=== PATIENT | male | born 1990 | race Caucasian/White ===

== ENCOUNTER 2016-12-22 20:11 | Emergency (ER) | payer SELFPAY ==
[~2016-12-22] VITALS: Ht 188 cm; Wt 108.9 kg
[~2016-12-22 20:11] MED LIST: AMOXIL500 MG PO; BACTRIM DS 8001 TAB PO; BENADRYL 50MG C50 MG PO; HYDROCODONE-APA1 TA1 PO; NOMEDS *; NOMEDS XX; PHENERGAN VC +120 ML PO; TAMIFLU75 MG PO; ZITHROMAX Z PA250 MG PO; ZOFRAN ODT4 MG PO
--- NOTE | 2016-12-22 20:54 | Urgent Treatment Center Report ---
History of Present Issue Date/Time Seen by Provider 12/22/162048 Visit Reason Pt arrived:Walked Presenting Problem:Fell 6 feet off of a deck- left eye is black, several small abraisons to forehead noted. left ankle swelling and pain Location if Accident: Onset of symptoms date/time:/ or onset unknown for:MEDICAL HX UNKNOWN Have you (or family members/close friends) recently traveled outside the [place]? N If Yes, where/when: Have you had exposure to infectious disease within the past month? TB? Other? Specify: Patient advised that he was outside his house leaning on a deck rail when it broke and he fell off the deck and landed on his left foot which had previous surgery too and now has pain and swelling in ankle area, small abrasions on forehead and contusion under left eye and left thigh Source patient Exam Limitations no limitations ALLERGIES Coded Allergies: cefaclor (From CECLOR) (Mild, 12/22/16) Home Medications Reported Medications No Home Medications (NO HOME MEDICATIONS) 1 EACH XX ONCE History Medical History General CAD? No Angina: No MA: No Hypertension? No Hyperlipidemia? No CHF? No COPD? No Asthma? No Anemia? No Hernia? No Thyroid Problems? No Hypothyroidism? No CVA? No Seizures? No Diabetes? No UTI? No Stones? No GB Disease: No Nephritic Syndrome? No Asplenia? No Hepatitis? No Sickle Cell Disease? No Arthritis? No Cataracts? No Glaucoma? No MRSA? No TB? No Cancer? No Immunization HX DT/Tetanus 07/29/2014 Surgical Hx Previous Surgery?Y LEFT ANKLE SURGERY Social History Smoking Hx Smoker: Current Every Day Smoker Tobacco: Yes Type Cigarettes Packs/day < 1 Pack Alcohol Alcohol: No Review of Systems All Other Systems Reviewed and Negative Physical Exam Vital Signs Vital Signs Date Time Temp Pulse Resp B/P Pulse O2 O2 Flow FiO2 Ox Delivery Rate 12/22 2033 99.1 121 20 135/99 96 12/22 2015 99.1 121 20 135/99 96 General Appearance normal appearance Respiratory Status Yes: trachea midline, chest symmetrical, non tender chest. No: respiratory distress. Cardiovascular normal exam, no peripheral edema, no gallop, no JVD Extremities pain and swelling left ankle area, contusion on left thigh area Neurologic alert Skin abrasions, bruising Medical Decision Making LABS/Meds/Orders Pt receiving controlled substance in ED? No Results/Orders Orders Procedure Date/time Status ANKLE-LT-3 VIEWS 12/22 2017 Active XRAY/CT/US XRAY/CT/US XRAY ankle Xray Results no fracture seen Departure Departure Time of Disposition 2113 Disposition DC Home or Self Care(routine) Clinical Impression Primary Impression: Ankle sprain Qualifiers: Encounter type: initial encounter Involved ligament of ankle: unspecified ligament Laterality: left Qualified Code: S93.402A - Sprain of unspecified ligament of left ankle, initial encounter Condition STABLE Referrals NO REFERRAL (Family) Patient Instructions How To Perform RICE (Rest, Ice, Compress, Elevate), How to Use Crutches Additional Instructions Follow up family doctor RICE Crutches/goldy wrap no weight bearing 2-3 days or until cleared by family doctor Return if needed Over the counter Tylenol or Motrin for pain if needed Discharge Counseling Counseled pt/family regarding diagnosis, test results, medications/RX, home care, follow up needs at 2115
[2016-12-22 21:20] VITALS: BP 135/99
--- NOTE | 2016-12-23 06:12 | RADIOLOGY REPORT PS360 ---
ANKLE-LT-3 VIEWS HISTORY: Pain following injury FALL ORDERING PHYSICIAN: James Brooks MD PATIENT AGE: 26 years COMPARISON: None FINDINGS: There is a bone plate along the distal fibula. No acute fracture or dislocation is evident. There is mild soft tissue swelling laterally. IMPRESSION: 1. Prior ORIF distal fibula with no acute fracture. 2. Soft tissues lying laterally
[2017-02-25] MEDS ORDERED: MEDROL 4MG. DOSE4 MG PO (12:19)
== END 2016-12-22 21:21 | disposition home or self-care (01) ==
LOC: UTC 20:11 → ER 20:11 → UTC 20:34
DX: S93.402A Sprain of unspecified ligament of left ankle, initial encounter (principal); Z72.0 Tobacco use; W17.89XA Other fall from one level to another, initial encounter; Y92.019 Unspecified place in single-family (private) house as the place of occurrence of the external cause

== ENCOUNTER 2017-08-29 14:19 | Emergency (ER) | payer MEDICAID ==
[~2017-08-29] VITALS: Ht 188 cm; Wt 99.8 kg
[~2017-08-29 14:19] MED LIST changes: +MEDROL 4MG. DOSE4 MG PO
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
--- OUTSIDE RECORDS SUMMARY | 2017-08-29 14:24 | External Medical Summary Rpt ---
Author Author MARIANA Cruz, MARIANA Production Organization MARIANA [employer] Address Unknown Phone Unavailable
--- OUTSIDE RECORDS SUMMARY | 2017-08-29 14:24 | External Medical Summary Rpt | CCD ---
Author Author , MARIANA PEÑA Address Unknown Phone [email or web address] Immunization Name Date Rout CVX Reac Dose Comm Prov Is Faci e tion ent ider Refu lity Give sed n Td 01-2 9 999 Hist H149 No H149 (kimberly 5-20 ori lt), 06 al Info adso rmat rbed ion - Sour ce Unsp ecif ied Hep 04-1 8 999 Hist H149 No H149 B, 7-20 ori ped/ 02 al adol Info rmat ion - Sour ce Unsp ecif ied Hep 11-1 8 999 Hist H149 No H149 B, 3-20 ori ped/ 01 al adol Info rmat ion - Sour ce Unsp ecif ied MMR 10-0 3 999 Hist H149 No H149 8-20 oric 01 al Info rmat ion - Sour ce Unsp ecif ied Hep 10-0 8 999 Hist H149 No H149 B, 8-20 ori ped/ al adol Info rmat ion - Sour ce Unsp ecif ied
--- OUTSIDE RECORDS SUMMARY | 2017-08-29 14:24 | External Medical Summary Rpt | CCD ---
Author Author , MARIANA PEÑA Address Unknown Phone [email or web address] Immunization Name Date Rout CVX Reac Dose [...]
--- OUTSIDE RECORDS SUMMARY | 2017-08-29 14:24 | External Medical Summary Rpt | CCD ---
Author Author , MARIANA PEÑA Address Unknown Phone [email or web address] Care Team Providers Care Felled Seam Operator Name Role Phone [facility] Unavailable Unavailable MEDICAL GROUP, [facility] RAUDEL STARKS Unavailable Unavailable ARLEEN TEO, Unavailable Unavailable ARLEEN TEO JULISSA GIANNI, JULISSA Unavailable Unavailable GIANNI HUITRON, HUITRON Unavailable Unavailable HUITRON, HUITRON Unavailable Unavailable [facility] Unavailable Unavailable INC, [facility] Unavailable Unavailable HOSPITAL, [facility], Unavailable Unavailable [facility] Unavailable Unavailable IMAGING ASS, [facility] Unavailable Unavailable PLLC, [facility] KARLA HEN, KARLA Unavailable Unavailable HEN SPRUIELL LAW, Unavailable Unavailable SPRUIELL LAW Purpose Continuity of Care Document - 03-01-2015 through 2016 Problems Code Diagnosis DOS Provider Status K029 DENTAL 02-25-2017 [facility] UNSPECIFIED INC [id number] ARTHRALGIA 02-25-2017 [facility] TEMPOROMAND INC IBULAR JOINT Z720 TOBACCO USE 02-25-2017 [facility] M542 CERVICALGIA 10-08-2016 HUITRON M545 LOW BACK 10-08-2016 [facility] PAIN M9901 SEGMENTAL & 10-08-2016 [facility] SOMATIC DYSFUNCTION CERVICAL REGION M9902 SEGMENTAL & 10-08-2016 HU[facility] SOMATIC DYSFUNCTION THORACIC REGION M9905 SEGMENTAL & 10-08-2016 HU[facility] SOMATIC DYSFUNCTION OF PELVIC REGION A084 VIRAL 08-01-2016 [facility] INTESTINAL PHYSICIANS INFECTION GROUP UNSPECIFIED Z34502 ACUTE 02-22-2016 [place] SUPPURATIVE [facility] W/O HOSPITAL RUPT EAR DRUM UNS EAR J0190 ACUTE 02-22-2016 [place] SINUSITIS [facility] J029 ACUTE 02-22-2016 [place] PHARYNGITIS [facility] UNSPECIFIED R05 COUGH 02-22-2016 [facility] B300 KERATOCONJU 08-29-2015 [facility] NCTIVITIS OPTOMETRIC DUE TO GROUP PLL ADENOVIRUS J97842 OTHER 08-25-2015 [facility] MEDICAL CONJUNCTIVI GROUP TIS BILATERAL 7295 PAIN IN 03-01-2015 [place] [facility]IS[facility]ES [facility] IMAGING ASS LIMB 93263 CRUSHING 03-01-2015 [place] [facility] Medications Na ND Rx Da Fi Fi [...] 60 7- 2- 00 07 MA ve LA 00 20 20 48 RT ED 10 17 17 27 NI 3 62 PH SO AR LO MA NE CY 4 #5 MG 91 DO SE PK Procedures Procedure DOS Code Location Performer Comment CHIROPRAC 16955 HUITRON HUITRON TIC 6 MANIPULAT MC TX SPINAL 1-2 REGIONS RADEX 26778 [place] ARLEEN HAND 5 MEDICAL TEO MINIMUM 3 IMAGING VIEWS ASS Encounters Encounter Start End Date Code Location Performer Type Date HOSPITAL [facility] - 7 7 [facility] OUTPATIEN INC T OFFICE 61006 [facility] 7 7 MEM HOS[facility] T VISIT 5 INC MINUTES OFFICE 75058 [facility] RAUDEL OUTPATIEN 6 6 PHYSICIAN T VISIT S GROUP 15 MINUTES OFFICE 76246 [facility] 6 6 [facility] T VIS[facility] HOSPITAL 15 MINUTES OFFICE 59506 [facility] SPRUIELL OUTPATIEN 5 5 OPTOMETRI LAW T NEW 30 C GROUP MINUTES [facility] OFFICE 30493 SPIRITISM KARLA OUTPATIEN 5 5 HEALTH HEN T NEW 20 MEDICAL MINUTES GROUP
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
[2017-08-29 14:56] LABS: UTC STREP SCREEN NOT DETECTED (NOTDETECTED)
[2017-08-29] MEDS ORDERED: ZITHROMAX Z PA250 MG PO (15:56)
[2017-08-29] MEDS ORDERED: BROMFED DM COU118 ML PO (15:56)
[2017-08-29] MEDS ORDERED: MEDROL 4MG. DOSE4 MG PO (15:56)
--- NOTE | 2017-08-29 15:57 | Urgent Treatment Center Report ---
History of Present Issue Date/Time Seen by Provider 08/29/17 6357 Visit Reason Pt arrived:Walked Presenting Problem:PT STATES ACHES, CHILLS, AND COUGH SINCE SATURDAY Location if Accident: Onset of symptoms date/time:/ or onset unknown for:MEDICAL HX UNKNOWN Have you (or family members/close friends) recently traveled outside the [place]? N If Yes, where/when: Have you had exposure to infectious disease within the past month? TB? Other? Specify: Patient state that he has been having sorethroat, fever, body aches and cough since Saturday State that yesterday he began to run a fever State that today he feels worse and his throat is hurting even more, he is having body aches and feels like his throat is on fire ALLERGIES Coded Allergies: cefaclor (From [employer]) (Mild, 12/22/16) History Medical History General CAD? No Angina: No [place]: No Hypertension? No Hyperlipidemia? No CHF? No DVT? No PE? No COPD? No Asthma? No Anemia? No GERD? No Gastric ulcers? No GI Bleed? No Hernia? No Thyroid Problems? No Hypothyroidism? No CVA? No Seizures? No Diabetes? No Renal Insuffiency? No UTI? No Stones? No BPH? No GB Disease: No Nephritic Syndrome? No Asplenia? No Hepatitis? No Sickle Cell Disease? No Arthritis? No Migraines? No Cataracts? No Glaucoma? No MRSA? No HIV? No TB? No Anxiety? No Depression? No Cancer? No More? No Immunization HX DT/Tetanus 07/29/2014 Surgical Hx Previous Surgery?Y LEFT ANKLE SURGERY Social History Smoking Hx Smoker: Current Every Day Smoker Tobacco: Yes Type Cigarettes Packs/day < 1 Pack Alcohol Alcohol: No Review of Systems All Other Systems Reviewed and Negative Constitutional chills, fever ENT ear pain, nose congestion, throat pain, throat swelling. Respiratory cough Physical Exam Vital Signs Vital Signs Date Time Temp Pulse Resp B/P Pulse O2 O2 Flow FiO2 Ox Delivery Rate 08/29 1436 98.5 89 20 145/86 98 General Appearance Patient appears ill, sitting on exam table pale in color cheeks flush Ear, Nose, Throat sinus pain/drainage, nasal congestion, Throat red, irritated drainage noted, tenderness maxillary sinuses Respiratory Status Yes: trachea midline, chest symmetrical. No: respiratory distress. Cardiovascular normal exam, regular rate/rhythm Neurologic alert, normal exam, oriented x 3 Medical Decision Making LABS/Meds/Orders Pt receiving controlled substance in ED? No Results/Orders Laboratory Tests 08/29/17 1440: Influenza Type A Ag NOT DETECTED, Influenza Type B Ag NOT DETECTED, Group A Strep Screen NOT DETECTED Orders Procedure Date/time Status UT STREP SCREEN 08/29 144 Complete UTC FLU A,B 08/29 144 Complete Departure Departure Time of Disposition 1554 Disposition DC Home or Self Care(routine) Clinical Impression Primary Impression: Upper respiratory infection Qualifiers: URI type: acute pharyngitis Pharyngitis/tonsillitis etiology: unspecified etiology Qualified Code: J02.9 - Acute pharyngitis, unspecified Condition STABLE Patient Instructions Sore Throat Additional Instructions * Monitor Temp. Tylenol and/or Ibuprofen as needed. ER if fever is no less than 101 despite alternating Tylenol and Ibuprofen * Encourage fluids, water, Gatorade, powerade, pedialyte if infant/toddler/or child * Warm salt water gargles for throat irritation *Warm fluids *Sore throat lozenges *Sleep elevated *humidifier or vaporizer Lots of rest Increase fluids, water, Gatorade, powerade *Flonase 2 sprays each nostril daily but may take 2-3 days to notice improvement with it *Your throat swab was sent to lab for culture. Those results area typically sent to your primary care physician. Be sure to follow up in 2-3 days if no improvement so they can review those results and treat if necessary If you dont have primary care I recommend you get one, but in the mean time you will have to return to a walk in clinic Follow up IMMEDIATELY for new or worsening of symptoms OR no noticeable improvement over the next 48-72 hours. 911 immediately for any life threatening symptoms such as chest pain or difficulty breathing Discharge Counseling Counseled pt/family regarding diagnosis, test results, medications/RX, home care, follow up needs Prescriptions Current Visit Scripts Azithromycin (Zithromycin (Z-ZEUS) 250MG Tab) 250 MG PO DAILY #6 TAB TAKE TWO (2) TABLETS ON DAY 1, THEN ONE (1) TABLET DAY #2 THRU #5 D-METHORPHAN HB/P-EPD HCL/BPM (Bromfed Dm Cough Syrup) 10 ML PO Q4HP PRN cough #120 SYR Methylprednisolone (Medrol Dose Zeus) 4 MG PO UD #1 ZEUS TAKE DIRECTED ON PACKAGING at 1600
[2017-08-29 16:00] VITALS: BP 145/86
== END 2017-08-29 16:09 | disposition home or self-care (01) ==
LOC: UTC 14:19
PROVIDERS: Nurse Practitioner
DX: J02.9 Acute pharyngitis, unspecified (principal); F17.211 Nicotine dependence, cigarettes, in remission